=== PATIENT | female | born 1950 | race Hispanic/Latino ===

== ENCOUNTER → 2017-10-12 | Outpatient (CLI) | payer OTHER, MEDICARE ==
[~2017-10-12] MED LIST: ESOM40CA PO; EYEDROPS OU; EZET10 PO; IPRA42SP NS; LOSA1TAB42 PO; MOME17N NASAL; MONT10TA24 PO; SERT50TA12 PO; SOLI5 PO
== END | disposition home or self-care (01) ==
LOC: RAH 14:11
PROVIDERS: ATTEND Family Medicine
DX: Z12.31 Encounter for screening mammogram for malignant neoplasm of breast (principal)
CPT/HCPCS: 77067

== ENCOUNTER → 2018-11-18 | Outpatient (CLI) | payer OTHER, MEDICARE | END | disposition home or self-care (01) | LOC: RAH 10:53 | PROVIDERS: ATTEND Family Medicine | DX: Z12.31 Encounter for screening mammogram for malignant neoplasm of breast (principal) | CPT/HCPCS: 77067 ==

== ENCOUNTER → 2022-06-14 | Outpatient (CLI) | payer OTHER, MEDICARE ==
[~2022-06-14] MED LIST changes: -EZET10 PO; +EZET10TA13 PO; +MONT-39 PO; -MONT10TA24 PO; +SERT-439 PO; -SERT50TA12 PO
== END | disposition home or self-care (01) ==
LOC: RAH 14:07
PROVIDERS: ATTEND Family Medicine
DX: Z12.31 Encounter for screening mammogram for malignant neoplasm of breast (principal)
CPT/HCPCS: 77067

== ENCOUNTER → 2022-11-29 | Outpatient (CLI) | payer OTHER, MEDICARE | END | disposition home or self-care (01) | LOC: RAH 10:49 | PROVIDERS: ATTEND Family Medicine | DX: N64.4 Mastodynia (principal) ==